=== PATIENT | male | born 2000 | race Hispanic/Latino ===

== ENCOUNTER 2018-06-19 13:01 | Emergency (ER) | payer BC ==
[2018-06-19 13:12] VITALS: BP 107/65; PULSE 89; RESP 19; TEMP 97.7; O2SAT 100
--- NOTE | 2018-06-19 13:46 | ED PDOC ---
Lower Extremity Pain/Injury Time Seen by Provider: 06/19/18 13:37 Chief Complaint (Nursing): Lower Extremity Problem/Injury History Per: Patient History/Exam Limitations: no limitations Additional Complaint(s): 18 yo M presents with right foot pain. He reports last night he fell down 3 stairs and landed on the right foot. Since then it has gotten swollen and painful. He is able to walk but with pain. Has not taken medication for it. Denies any other injuries, numbness or tingling PMD: none Past Medical History Reviewed: Historical Data, Nursing Documentation, Vital Signs Vital Signs: Last Vital Signs Temp 97.7 F 06/19/18 13:10 Pulse 89 06/19/18 13:10 Resp 19 06/19/18 13:10 BP 107/65 06/19/18 13:10 Pulse Ox 100 06/19/18 13:10 - Medical History PMH: No Chronic Diseases - Family History Family History: States: Unknown Family Hx - Home Medications Home Medications: Ambulatory Orders Medication Instructions Recorded Ibuprofen [Motrin Tab] 600 mg PO Q6 PRN #20 tab 06/19/18 - Allergies Allergies/Adverse Reactions: Allergies Allergy/AdvReac Type Severity Reaction Status Date / Time No Known Allergies Allergy Verified 06/19/18 13:41 Review of Systems Constitutional: Negative for: Fever, Weakness Musculoskeletal: Positive for: Foot Pain Neurological: Negative for: Numbness Physical Exam - Reviewed Nursing Documentation Reviewed: Yes Vital Signs Reviewed: Yes - Physical Exam Comments: GENERALIZED APPEARANCE: Patient is awake, alert, oriented x3 in no acute distress. SKIN: Warm, dry; (-) cyanosis. LOWER EXTREMITY:pulses + 2, capillary refill <2, RLE: (+) swelling and tenderness to lateral top of foot over cuboid, 4th and 5th metatarsal (-) ankle swelling (-)medial or lateral malleolus tenderness (+)FROM, NVI, Achilles tendon intact and nontender. CARDIOVASCULAR: (+) distal pulse. NEUROLOGIC: (+) distal sensation. - ECG O2 Sat by Pulse Oximetry: 100 Medical Decision Making Medical Decision Makin:40 initial impression: foot sprain vs fracture -- Xr foot -- ice applied for swelling -- Ibuprofen PO 15:50 Reviewed X-ray which showed no obvious fracture or dislocation. Due to the amount of swelling, will contact podiatry to take a look at xray 15:59 Podiatry looked at the X-ray and agrees X-ray shows no fracture. Will marion wrap foot and give a hard shoe. 16:02 Foot X-ray FINDINGS: BONES: Bone alignment and mineralization are normal. There is no acute displaced fracture or bone destruction. JOINTS: Normal. SOFT TISSUES: Normal. OTHER FINDINGS: None. IMPRESSION: No acute displaced fracture or dislocation. Discussed results, diagnosis, treatment, return precautions and f/u with pt who is understanding, in agreement and stable for dc Disposition - Clinical Impression Clinical Impression: Sprain of foot, right - Patient ED Disposition Is Patient to be Admitted: No Counseled Patient/Family Regarding: Studies Performed, Diagnosis, Need For Followup, Rx Given - Disposition Referrals: Podiatry Clinic [Outside] Salvatore Rossi DPM [[facility]] - Disposition: Routine/Home Disposition Time: 16:07 Condition: STABLE Additional Instructions: Rest, ice and elevate. Wear marion wrap for compression, hard shoe for support. Take ibuprofen for pain and swelling. FOllow up with foot doctor as listed. Thank you for letting us take care of you today. The emergency medical care you received today was directed at your acute symptoms. If you were prescribed any medication, please fill it and take as directed. It may take several days for your symptoms to resolve. Return to the Emergency Department if your symptoms worsen, do not improve, or if you have any other problems. Please contact your doctor in 2 days for re-evaluation and follow up / or call one of the physicians/clinics you have been referred to that are listed on the Patient Visit Information form that is included in your discharge packet. Bring any paperwork you were given at discharge with you along with any medications you are taking to your follow up visit. Our treatment cannot replace ongoing medical care by a primary care provider (PCP) outside of the emergency department. Prescriptions: Ibuprofen [Motrin Tab] 600 mg PO Q6 PRN #20 tab PRN Reason: Pain, Moderate (4-7) Instructions: Foot Sprain (DC) Print Language: SWISS - POA Present On Arrival: None
--- NOTE | 2018-06-19 16:06 | RAD ---
Date of service: 06/19/2018 PROCEDURE: Right Foot Radiographs. HISTORY: injury, swelling COMPARISON: None. TECHNIQUE: 3 views obtained. FINDINGS: BONES: Bone alignment and mineralization are normal. There is no acute displaced fracture or bone destruction. JOINTS: Normal. SOFT TISSUES: Normal. OTHER FINDINGS: None. IMPRESSION: No acute displaced fracture or dislocation.
== END 2018-06-19 16:42 | disposition home or self-care (01) ==
LOC: H.ER 13:01
DX: S93.601A Unspecified sprain of right foot, initial encounter (principal); W10.9XXA Fall (on) (from) unspecified stairs and steps, initial encounter